=== PATIENT | female | born 1980 | race African-American/Black ===

== ENCOUNTER 2017-01-02 21:31 | Emergency (ER) | payer MEDICAID | END 2017-01-02 22:55 | disposition left against medical advice (07) | LOC: ER 21:31 | DX: Z53.21 Procedure and treatment not carried out due to patient leaving prior to being seen by health care provider (principal) ==

== ENCOUNTER 2017-04-21 07:04 | Emergency (ER) | payer MEDICAID ==
[~2017-04-21] VITALS: Ht 167.6 cm; Wt 64.0 kg
[2017-04-21 07:06] VITALS: BP 138/76
== END 2017-04-21 08:30 | disposition left against medical advice (07) ==
LOC: ER 07:04
DX: J11.1 Influenza due to unidentified influenza virus with other respiratory manifestations (principal)
CPT/HCPCS: 99283

== ENCOUNTER 2017-10-25 21:23 | Emergency (ER) | payer MEDICAID ==
[~2017-10-25] VITALS: Ht 162.6 cm; Wt 89.0 kg
[2017-10-25 21:52] VITALS: BP 130/73
== END 2017-10-26 02:05 | disposition left against medical advice (07) ==
LOC: ER 21:23
DX: H57.8 Other specified disorders of eye and adnexa (principal); Z53.21 Procedure and treatment not carried out due to patient leaving prior to being seen by health care provider

== ENCOUNTER 2017-12-12 13:40 | Observation (INO) | payer MEDICAID ==
[~2017-12-12] VITALS: Ht 157.5 cm; Wt 79.8 kg
[2017-12-12 15:48] LABS: CLARITY URINE CLEAR (CLEAR); COLOR URINE YELLOW (YELLOW); KETONES URINE NEGATIVE (NEGATIVE); LEUKOCYTE ESTERASE URINE NEGATIVE (NEGATIVE); NITRITE URINE NEGATIVE (NEGATIVE); OCCULT BLOOD URINE NEGATIVE (NEGATIVE); PH URINE 6.5 (4.5-8.0); PROTEIN URINE 2+ (NEGATIVE); SPECIFIC GRAVITY URINE 1.004 (1.005-1.030); UROBILINOGEN URINE 0.2 E.U./dL (0.2-1.0)
[2017-12-12 18:32] LABS: BASOPHILS % 0.5 % (0.0-2.0); EOSINOPHILS % 2.3 % (0.0-5.0); HEMATOCRIT. 30.3 % (36.0-48.0); LYMPHOCYTES % 19.9 % (20.0-50.0); MEAN CORPUSCULAR HEMOGLOBIN 28.8 pg (28.0-32.0); MEAN CORPUSCULAR VOLUME 86.8 fL (81.0-99.0); MEAN PLATELET VOLUME 8.9 fl (7.4-10.4); MONOCYTES % 6.1 % (2.0-8.0); NEUTROPHILS % 71.2 % (40.0-76.0); PLATELET 286 x1000/uL (130-400); RED BLOOD CELL COUNT 3.49 mill/uL (4.2-5.4); RED CELL DISTRIBUTION WIDTH 17.8 % (11.6-14.6)
[2017-12-12 18:40] LABS: CHLORIDE 109 mEq/L (98-107)
[2017-12-12 18:41] LABS: INR 0.9; PARTIAL THROMBOPLASTIN TIME 25.5 sec (23.4-31.0); PROTHROMBIN TIME 9.3 sec (9.1-11.1)
[2017-12-12 19:56] LABS: *AMPHETAMINES SCREEN URINE NEGATIVE (NEGATIVE); *BARBITURATES SCREEN URINE NEGATIVE (NEGATIVE); *BENZODIAZEPINES SCREEN URINE NEGATIVE (NEGATIVE); *COCAINE SCREEN URINE NEGATIVE (NEGATIVE); METHADONE URINE SCREEN NEGATIVE (NEGATIVE)
[2017-12-12 19:57] LABS: CANNABINOID URINE SCREEN NEGATIVE (NEGATIVE); OPIATES URINE SCREEN NEGATIVE (NEGATIVE); PHENCYCLIDINE URINE SCREEN NEGATIVE (NEGATIVE)
[2017-12-12] MEDS ORDERED: BETAMETHASONE ACET/BETAMET 30 MG/5 ML VIAL IM ONE (20:15)
[2017-12-12] MEDS: LACTATED RINGERS 1,000 ML IV SCH (21:02)
[2017-12-12] MEDS: MAGNESIUM 20 G PREMIX (L & D) 500 ML IV SCH ×2 (21:05→22:32)
[2017-12-12] MEDS ORDERED: HYDRALAZINE 20MG/ML VIAL IV SCH (22:11)
[2017-12-13] MEDS: MAGNESIUM 20 G PREMIX (L & D) 500 ML IV SCH ×2 (05:01→15:00)
[2017-12-13] MEDS: LACTATED RINGERS 1,000 ML IV SCH ×2 (09:11→23:01)
[2017-12-13] MEDS: HYDRALAZINE 20MG/ML VIAL IV PRN ×3 (09:46→19:05)
[2017-12-13 13:47] LABS: HEPATITIS B SURFACE ANTIGEN NEGATIVE; RUBELLA IGG 44.2 IU/mL (4.99-10)
[2017-12-13] MEDS ORDERED: BETAMETHASONE ACET/BETAMET 30 MG/5 ML VIAL IM SCH (19:15)
[2017-12-14] MEDS: MAGNESIUM 20 G PREMIX (L & D) 500 ML IV SCH ×2 (02:12→14:26)
[2017-12-14] MEDS ORDERED: LABETALOL HCL 100MG TABLET PO SCH ×2 (09:00→13:00)
[2017-12-14] MEDS: LABETALOL HCL 200MG TABLET PO SCH (21:10)
[2017-12-15 01:13] VITALS: BP 125/60
[2017-12-15] MEDS: MAGNESIUM 20 G PREMIX (L & D) 500 ML IV SCH (01:13)
[2017-12-15] MEDS ORDERED: LACTATED RINGERS 1,000 ML IV SCH (01:15)
[2017-12-15] MEDS: LABETALOL HCL 200MG TABLET PO SCH ×3 (08:31→23:57)
[2017-12-15] MEDS ORDERED: NIFEDIPINE XL 30MG TAB PO NR (11:21)
[2017-12-15 12:48] LABS: INR 0.9; PARTIAL THROMBOPLASTIN TIME 23.7 sec (23.4-31.0)
[2017-12-15 12:52] LABS: CHLORIDE 103 mEq/L (98-107)
[2017-12-15 12:57] LABS: PROTHROMBIN TIME < 9.0 sec (9.1-11.1)
[2017-12-15] MEDS ORDERED: NIFEDIPINE 10MG CAPSULE PO NR (16:15)
[2017-12-15] MEDS: LACTATED RINGERS 1,000 ML IV SCH (21:18)
[2017-12-16] MEDS: LACTATED RINGERS 1,000 ML IV SCH ×2 (04:17→18:11)
[2017-12-16] MEDS: LABETALOL HCL 200MG TABLET PO SCH ×2 (08:21→16:12)
[2017-12-16] MEDS ORDERED: NIFEDIPINE 10MG CAPSULE PO NR ×3 (10:00→23:15)
[2017-12-16 11:26] LABS: BASOPHILS % 0.3 % (0.0-2.0); CLARITY URINE CLEAR (CLEAR); COLOR URINE YELLOW (YELLOW); EOSINOPHILS % 0.7 % (0.0-5.0); HEMATOCRIT. 32.8 % (36.0-48.0); HEMOGLOBIN. 10.7 g/dL (12.0-16.0); KETONES URINE NEGATIVE (NEGATIVE); LEUKOCYTE ESTERASE URINE NEGATIVE (NEGATIVE); LYMPHOCYTES % 13.4 % (20.0-50.0); MEAN CORPUSCULAR VOLUME 86.2 fL (81.0-99.0); MEAN PLATELET VOLUME 8.8 fl (7.4-10.4); MONOCYTES % 9.6 % (2.0-8.0); NITRITE URINE NEGATIVE (NEGATIVE); OCCULT BLOOD URINE 2+ (NEGATIVE); PLATELET 314 x1000/uL (130-400); PROTEIN URINE 3+ (NEGATIVE); RED CELL DISTRIBUTION WIDTH 17.8 % (11.6-14.6); SPECIFIC GRAVITY URINE 1.007 (1.005-1.030); UROBILINOGEN URINE 0.2 E.U./dL (0.2-1.0)
[2017-12-16 11:31] LABS: CHLORIDE 104 mEq/L (98-107)
[2017-12-16 11:34] LABS: INR 0.9; PARTIAL THROMBOPLASTIN TIME 24.3 sec (23.4-31.0); PROTHROMBIN TIME 9.2 sec (9.1-11.1)
[2017-12-16] MEDS ORDERED: DINOPROSTONE 10MG VAGINAL INSERT VG NR (13:15)
[2017-12-16] MEDS ORDERED: FENTANYL CITRATE/PF 50MCG/ML 2ML VIAL ONE ×2 (14:51→23:48)
[2017-12-16] MEDS ORDERED: BUPIVACAINE HCL/PF 0.25% (2.5MG/ML) 10ML ONE ×2 (14:51→23:48)
[2017-12-16] MEDS ORDERED: BUPIVACAINE HCL/NS/PF EPIDURAL 100 ML EP ONE ×2 (14:52→23:48)
[2017-12-16] MEDS ORDERED: ONDANSETRON HCL 4MG/2ML VIAL IV PRN (15:15)
[2017-12-16] MEDS ORDERED: DIPHENHYDRAMINE 50MG/ML VIAL IV PRN (15:15)
[2017-12-16] MEDS ORDERED: METOCLOPRAMIDE HCL 10MG/2ML VIAL IV PRN (15:15)
[2017-12-17] MEDS ORDERED: LABETALOL HCL 100MG TABLET PO SCH
[2017-12-17] MEDS: LACTATED RINGERS 1,000 ML IV SCH ×2 (01:46→08:45)
[2017-12-17] MEDS ORDERED: HALOPERIDOL LACTATE 5MG/ML VIAL IM NR (03:30)
[2017-12-17] MEDS ORDERED: NIFEDIPINE 10MG CAPSULE PO ONE (06:30)
[2017-12-17] MEDS ORDERED: DEXT 5%/LR + PITOCIN 20UNITS/L 1,000 ML IV SCH (08:11)
[2017-12-17] MEDS ORDERED: HALOPERIDOL LACTATE 5MG/ML VIAL IM ONE (12:45)
== END 2017-12-17 12:45 | disposition left against medical advice (07) ==
LOC: L&D 13:40 → UNDODISOB 12-13 01:15
PROVIDERS: ADMIT Specialist; ATTEND Specialist
DX: O13.3 Gestational [pregnancy-induced] hypertension without significant proteinuria, third trimester (principal); O09.523 Supervision of elderly multigravida, third trimester; Z3A.32 32 weeks gestation of pregnancy
CPT/HCPCS: 36415; 59025; 76805; 76815; 80053; 80305; 81003; 82565; 82575; 83735; 84156; 84550; 85025; 85384; 85610; 85730; 86592; 86703; 86762; 86850; 86900; 86901; 87340; 96365; 96366; 96368; 96372; 96375; 96376; 99281; G0378; J0360; J0702; J1630; J3010; J3475; J3490; J7120; J2590; A4315

== ENCOUNTER 2018-11-18 14:11 | Emergency (ER) | payer MEDICAID ==
[~2018-11-18] VITALS: Ht 157.5 cm; Wt 70.0 kg
[2018-11-18 15:01] VITALS: BP 126/83
== END 2018-11-18 20:20 | disposition left against medical advice (07) ==
LOC: ER 14:11
DX: R21 Rash and other nonspecific skin eruption (principal); Z53.21 Procedure and treatment not carried out due to patient leaving prior to being seen by health care provider

== ENCOUNTER 2019-01-19 13:43 | Emergency (ER) | payer MEDICAID ==
[~2019-01-19] VITALS: Ht 157.5 cm; Wt 71.0 kg
[2019-01-19 14:35] VITALS: BP 144/73
== END 2019-01-19 15:45 | disposition left against medical advice (07) ==
LOC: ER 13:43
DX: Z59.0 Homelessness (principal); F41.0 Panic disorder [episodic paroxysmal anxiety]; Z63.8 Other specified problems related to primary support group
CPT/HCPCS: 99283

== ENCOUNTER 2019-03-15 19:34 | Emergency (ER) | payer MEDICAID ==
[~2019-03-15] VITALS: Ht 160 cm; Wt 66.0 kg
[2019-03-15 20:42] LABS: BASOPHILS % 0.9 % (0.0-2.0); EOSINOPHILS % 2.3 % (0.0-5.0); HEMATOCRIT. 40.6 % (36.0-48.0); HEMOGLOBIN. 13.9 g/dL (12.0-16.0); LYMPHOCYTES % 34.9 % (20.0-50.0); MEAN CORPUSCULAR HEMOGLOBIN 31.4 pg (28.0-32.0); MEAN PLATELET VOLUME 8.1 fl (7.4-10.4); NEUTROPHILS % 55.9 % (40.0-76.0); PLATELET 372 x1000/uL (130-400); RED BLOOD CELL COUNT 4.41 mill/uL (4.2-5.4); RED CELL DISTRIBUTION WIDTH 14.1 % (11.6-14.6)
[2019-03-15 21:28] LABS: CHLORIDE 111 mEq/L (98-107)
[2019-03-15 21:50] LABS: ETHANOL BLOOD < 10 mg/dL
[2019-03-16] MEDS ORDERED: HALOPERIDOL LACTATE 5MG/ML VIAL IM ONE ×3 (01:15→12:30)
[2019-03-16] MEDS ORDERED: LORAZEPAM 2MG/ML CPJ IM ONE ×2 (05:30→12:30)
[2019-03-16 08:31] LABS: CLARITY URINE CLOUDY (CLEAR); COLOR URINE YELLOW (YELLOW); KETONES URINE TRACE (NEGATIVE); LEUKOCYTE ESTERASE URINE 1+ (NEGATIVE); NITRITE URINE NEGATIVE (NEGATIVE); OCCULT BLOOD URINE NEGATIVE (NEGATIVE); PROTEIN URINE TRACE (NEGATIVE); SPECIFIC GRAVITY URINE 1.031 (1.005-1.030)
[2019-03-16 09:01] LABS: METHADONE URINE SCREEN NEGATIVE (NEGATIVE); OPIATES URINE SCREEN NEGATIVE (NEGATIVE)
[2019-03-16 09:02] LABS: *AMPHETAMINES SCREEN URINE NEGATIVE (NEGATIVE); *BARBITURATES SCREEN URINE NEGATIVE (NEGATIVE); *BENZODIAZEPINES SCREEN URINE NEGATIVE (NEGATIVE); *COCAINE SCREEN URINE NEGATIVE (NEGATIVE); PHENCYCLIDINE URINE SCREEN NEGATIVE (NEGATIVE)
[2019-03-16 09:04] LABS: CANNABINOID URINE SCREEN PRESUMTIVE POSITIVE (NEGATIVE)
[2019-03-16] MEDS ORDERED: DIPHENHYDRAMINE 50MG/ML VIAL IM ONE (12:30)
[2019-03-16 13:30] VITALS: BP 124/68
== END 2019-03-16 14:35 | disposition home or self-care (01) ==
LOC: ER 19:34
DX: R45.851 Suicidal ideations (principal); R45.1 Restlessness and agitation; Z78.1 Physical restraint status
CPT/HCPCS: 36415; 80053; 80305; 80307; 80320; 80329; 81003; 81025; 85025; 96372; 99284; J1630; J2060; J1200; G0480

== ENCOUNTER 2019-12-06 17:44 | Emergency (ER) | payer MEDICAID ==
[~2019-12-06] VITALS: Ht 160 cm; Wt 62.0 kg
[2019-12-06 18:07] VITALS: BP 146/100
[2019-12-06] MEDS ORDERED: DIPHENHYDRAMINE 25MG CAPSULE PO ONE (18:45)
[2019-12-06] MEDS ORDERED: LIDOCAINE HCL/PF 1% 10 MG/ML 5ML VIAL IJ ONE (18:45)
[2019-12-06] MEDS ORDERED: AZITHROMYCIN 500 MG TABLET PO ONE (18:45)
[2019-12-06] MEDS ORDERED: CEFTRIAXONE SODIUM 250 MG/VIAL IM ONE (18:45)
[2019-12-06 19:06] LABS: CLARITY URINE CLEAR (CLEAR); COLOR URINE YELLOW (YELLOW); KETONES URINE TRACE (NEGATIVE); LEUKOCYTE ESTERASE URINE TRACE (NEGATIVE); NITRITE URINE NEGATIVE (NEGATIVE); OCCULT BLOOD URINE NEGATIVE (NEGATIVE); PH URINE 6.5 (4.5-8.0); PROTEIN URINE 1+ (NEGATIVE); SPECIFIC GRAVITY URINE 1.035 (1.005-1.030)
[2019-12-06 19:37] LABS: *AMPHETAMINES SCREEN URINE NEGATIVE (NEGATIVE); *BARBITURATES SCREEN URINE NEGATIVE (NEGATIVE); *BENZODIAZEPINES SCREEN URINE NEGATIVE (NEGATIVE); *COCAINE SCREEN URINE NEGATIVE (NEGATIVE)
[2019-12-06 19:38] LABS: CANNABINOID URINE SCREEN NEGATIVE (NEGATIVE); METHADONE URINE SCREEN NEGATIVE (NEGATIVE); OPIATES URINE SCREEN NEGATIVE (NEGATIVE); PHENCYCLIDINE URINE SCREEN NEGATIVE (NEGATIVE)
[2019-12-09 04:07] LABS: NEISSERIA GONORRHOEAE NAA Negative (Negative)
== END 2019-12-06 19:38 | disposition home or self-care (01) ==
LOC: ER 17:44
DX: Z20.2 Contact with and (suspected) exposure to infections with a predominantly sexual mode of transmission (principal)
CPT/HCPCS: 80305; 81003; 81025; 87491; 87591; 96372; 99284; J0696; J3490; Q0163

== ENCOUNTER 2019-12-27 07:55 | Emergency (ER) | payer MEDICAID ==
[~2019-12-27] VITALS: Ht 160 cm; Wt 71.0 kg
[2019-12-27 07:56] VITALS: BP 135/98
[2019-12-27] MEDS ORDERED: CEFTRIAXONE SODIUM 250 MG/VIAL IM ONE (08:45)
[2019-12-27] MEDS ORDERED: AZITHROMYCIN 500 MG TABLET PO SCH (09:00)
[2019-12-27] MEDS ORDERED: LIDOCAINE HCL/PF 1% 10 MG/ML 5ML VIAL ONE (09:02)
== END 2019-12-27 09:00 | disposition home or self-care (01) ==
LOC: ER 07:55
DX: N34.2 Other urethritis (principal); B37.3 Candidiasis of vulva and vagina
CPT/HCPCS: 81025; 96372; 99283; J0696; J3490

== ENCOUNTER 2020-10-23 11:52 | Emergency (ER) | payer MEDICAID, OTHER ==
[~2020-10-23] VITALS: Ht 167.6 cm; Wt 64.0 kg
[2020-10-23 11:58] VITALS: BP 138/90
== END 2020-10-23 12:20 | disposition left against medical advice (07) ==
LOC: ER 11:52
DX: S60.211A Contusion of right wrist, initial encounter (principal); S40.212A Abrasion of left shoulder, initial encounter; X78.0XXA Intentional self-harm by sharp glass, initial encounter; Y93.89 Activity, other specified; Y92.018 Other place in single-family (private) house as the place of occurrence of the external cause; F25.0 Schizoaffective disorder, bipolar type
CPT/HCPCS: 99283

== ENCOUNTER 2024-06-29 11:32 | Emergency (ER) | payer MEDICAID, OTHER ==
[~2024-06-29] VITALS: Ht 165.1 cm; Wt 75.0 kg
[2024-06-29 11:33] VITALS: TEMP 36.7; O2SAT 95
[2024-06-29 12:29] VITALS: BP 138/64; PULSE 82; RESP 18
[2024-06-29] MEDS: IBUPROFEN 600MG TABLET PO STA (12:29)
[2024-06-29 13:00] LABS: CLARITY URINE CLOUDY (CLEAR); COLOR URINE YELLOW (YELLOW); GLUCOSE URINE NEGATIVE (NEGATIVE); KETONES URINE NEGATIVE (NEGATIVE); LEUKOCYTE ESTERASE URINE TRACE (NEGATIVE); NITRITE URINE POSITIVE (NEGATIVE); OCCULT BLOOD URINE 2+ (NEGATIVE); PH URINE 5.5 (4.5-8.0); PROTEIN URINE TRACE (NEGATIVE); SPECIFIC GRAVITY URINE 1.019 (1.005-1.030)
[2024-06-29 13:14] LABS: BACTERIA URINE 4+; RBC URINE 0-2 /hpf (0-2); SQUAMOUS EPITHELIAL CELL URINE 3+ /lpf (RARE/1+); YEAST URINE NONE SEEN
[2024-06-29] MEDS ORDERED: CEPH500T MT (13:23)
== END 2024-06-29 12:17 | disposition home or self-care (01) ==
LOC: ER 11:32
DX: N39.0 Urinary tract infection, site not specified (principal); F31.9 Bipolar disorder, unspecified; Z68.27 Body mass index [BMI] 27.0-27.9, adult; Z86.59 Personal history of other mental and behavioral disorders
CPT/HCPCS: 81003; 81025; 99283